=== PATIENT | male | born 1970 | race Caucasian/White ===

== ENCOUNTER 2020-03-22 08:09 | Outpatient (CLI) | payer MEDICAID ==
--- NOTE | 2020-03-22 16:06 | XRAY Report ---
PROCEDURE: Shoulder 3 View RT INDICATIONS: RT SHOULDER PAIN TECHNIQUE: 3 views of the shoulder were acquired. COMPARISON: None. FINDINGS: Bones: No fractures or dislocations. No suspicious bony lesions. Visualized ribs appear intact. M oderate to severe acromioclavicular narrowing. Humeral head is high riding. Soft tissues: No suspicious soft tissue calcifications. IMPRESSION: 1. Moderate to severe acromioclavicular narrowing. 2. High riding humeral head which can be seen with rotator cuff pathology. Reviewed by: Johanny Laird MD on 03/22/2020 4:05 PM [facility] Approved by: Johanny Laird MD on 03/22/2020 4:05 PM [facility] Station ID: [id number]
== END 2020-03-22 08:10 | disposition home or self-care (01) ==
LOC: DI 08:09
PROVIDERS: ATTEND Naprapath
DX: M25.811 Other specified joint disorders, right shoulder (principal); R93.6 Abnormal findings on diagnostic imaging of limbs